=== PATIENT | female | born 1985 | race Caucasian/White ===

== ENCOUNTER 2018-05-12 18:02 | Observation (INO) | payer OTHER ==
[2018-05-12 18:25] LABS: Bilirubin Negative (Negative); Blood, Urine Negative (Negative); Clarity Clear (Clear); Glucose, Urine (Dipstick) Negative (Negative); Leukocyte Trace (Negative); Nitrite Negative (Negative); Protein, Urine (Dipstick) Negative (Neg-Trace); Urobilinogen 0.2 mg/dL (0.2-1.0)
[2018-05-12 18:33] LABS: Bacteria/HPF 2+ HPF (None Seen); RBC/HPF 0-3 HPF (0-3)
[2018-05-12 20:09] LABS: #Basophils 0.1 thou/uL (0.0-0.2); #Eosinphils 0.1 thou/uL (0.0-0.7); #Monocytes 0.6 thou/uL (0.11-0.59); #Neutrophils 4.2 thou/uL (1.40-6.50); %Basophils 1.3 % (0.0-1.0); %Eosinophils 1.2 % (0.0-10.0); %Lymphocytes 37.4 % (21.0-51.0); %Monocytes 7.6 % (0.0-10.0); %Neutrophils 52.6 % (42.0-75.0); Hemoglobin 12.9 g/dL (12.0-16.0); Mean Corpuscular HGB CONC 34.3 g/dL (32.0-36.0); Mean Corpuscular Hemoglobin 28.3 pg (27.0-31.0); Mean Corpuscular Volume 82.7 fL (78.0-98.0); Mean Platelet Volume 9.9 fL (7.4-10.4); Platelet Count 212 thou/uL (130-400); RBC Distribution Width 10.9 % (11.5-14.5); Red Blood Cell (RBC) Count 4.55 mill/uL (4.20-5.40); White Blood Cell (WBC) Count 7.9 thou/uL (4.8-10.8)
[2018-05-12 20:19] LABS: ALT (SGPT) 136 U/L (8-55); AST (SGOT) 105 U/L (5-34); Albumin 4.3 g/dL (3.5-5.0); Alkaline Phosphatase 102 U/L (40-150); Anion Gap 14 mmol/L (10-20); BUN (Urea Nitrogen) 8 mg/dL (7.0-18.7); Bilirubin, Total 0.5 mg/dL (0.2-1.2); Calc. Creatinine Clearance 0 mL/min (70-130); Calcium 10.2 mg/dL (7.8-10.44); Carbon Dioxide 23 mmol/L (22-29); Chloride 104 mmol/L (98-107); Estimated GFR-MDRD Greater than 90; Glucose 139 mg/dL (70-105); Lipase 48 U/L (8-78); Protein, Total 7.3 g/dL (6.0-8.3); Sodium 137 mmol/L (136-145)
[2018-05-12] MEDS ORDERED: cefTRIAXone\\ROCEPHIN 1 GM VIAL ONE (21:05)
[2018-05-12] MEDS ORDERED: Sodium Chloride 0.9% 100 ML ONE (21:05)
[2018-05-13] MEDS ORDERED: Ibuprofen 600 MG TAB PO PRN (00:51)
[2018-05-13] MEDS ORDERED: HumaLOG 300 UNITS/3 ML VIAL SC PRN (00:54)
[2018-05-13] MEDS ORDERED: Dextrose 5% in Water 1,000 ML IV PRN (00:54)
[2018-05-13] MEDS ORDERED: Dextrose 50% Abboject 50 ML SYRINGE SLOW IVP PRN (00:54)
[2018-05-13] MEDS ORDERED: diphenhydrAMINE 50 MG/ML VIAL IVP SCH (01:00)
[2018-05-13] MEDS ORDERED: Sodium Chloride 0.9% 10 ML ONE ×3 (01:30→08:40)
[2018-05-13 03:30] VITALS: BMI 46.9
--- NOTE | 2018-05-13 04:05 | HP ---
DATE OF ENCOUNTER: 05/13/2018 PRIMARY CHIEF ANALYTICS OFFICER: Dr. Natanael Rosales. CHIEF COMPLAINT: Flank pain, fever and ER assessment of pyelonephritis. HISTORY OF PRESENT ILLNESS: Patient is a 32-year-old G4, P2 female with an intrauterine of 9 weeks who is being cared for by Dr. Rosales. She presented to the emergency room today with a thre e-day history of fatigue, headache, fever, and right-sided back pain. She reports that she has had a T-max today of 101. Patient reports nausea. She reports diarrhea, abdominal cramping, which she at tributes to recent starting metformin. Patient denies sore throat, chest pain, shortness of breath, dysuria, hematuria, back pain. Denies neck pain. PAST MEDICAL HISTORY: Hypothyroidism with spontaneous resolution ovarian cyst, type 2 diabetes. PAST SURGICAL HISTORY: She has had a and ovarian cystectomy. SOCIAL HISTORY: Patient denies drug, alcohol, or tobacco use during this . ALLERGIES: PENICILLIN. MEDICATIONS: Lexapro 20 mg a day, metformin 500 mg twice a day. Patient was given 1 gram of Rocephi n in the hospital or in the emergency room prior to transfer. OB LABS: Unavailable. REVIEW OF SYSTEMS: Per HPI. PHYSICAL EXAMINATION: VITAL SIGNS: Blood pressure 119/73, pulse of 85, temperature 98.4, satting 98% on room air. GENERAL: She appears to be in no acute distress. She is alert and oriented, cooperative and pleasan t to interact with. HEENT: Normocephalic, atraumatic. LUNGS: Clear to auscultation bilaterally. HEART: Regular rate and rhythm. ABDOMEN: Soft. She does have right-sided flank pain or CVA tenderness to palpation. GENITOURINARY: Has been deferred. LABORATORY DATA: White count of 7.9, hemoglobin 12.9, hematocrit 37.6, platelets 212,000. Sodium 13 7, potassium 4.0, chloride 104 with a BUN 8, creatinine 0.68, glucose of 139, lactic acid of 1.4, ginny cium of 10.2. AST of 105, ALT of 136. Urine shows negative nitrite, trace leukocyte esterase, 7-10 white blood cells, 4-6 squamous cells and 2+ urine bacteria. ASSESSMENT AND PLAN: Patient is a 32-year-old diabetic with presumptive pyelonephritis. Patient is currently afebrile, though reports a T-max of 101. We will place the patient on Rocephin 1 gram q.12 hours plus her home medications. If she remains afebrile during her stay, patient will be discharge d tomorrow evening with home medication, antibiotics to be continued. Patient does have unexplained elevated LFTs, we will get hepatitis panel and a right upper quadrant ultrasound. For better evaluat ion, patient reports that she does not tolerate metformin well. We will place her on an insulin slid ing scale and we will continue the patient on her Lexapro 20 mg daily.
[2018-05-13 07:05] LABS: ALT (SGPT) 112 U/L (8-55); AST (SGOT) 90 U/L (5-34); Albumin 3.9 g/dL (3.5-5.0); Alkaline Phosphatase 94 U/L (40-150); Bilirubin, Direct 0.2 mg/dL (0.1-0.3); Bilirubin, Total 0.4 mg/dL (0.2-1.2); Protein, Total 6.8 g/dL (6.0-8.3)
[2018-05-13 07:27] LABS: HBCM Index 0.07 S/CO (0-0.79); HBSAg Index 0.17 S/CO (0-0.99); Hep A IgM AB Non-Reactive (NonReactive); Hep A IgM S/CO 0.12 S/CO (0-0.79); Hep B Surf Ag Non-Reactive S/CO (NonReactive); Hep C IgG Ab Non-Reactive (NonReactive); Hep C Index 0.08 S/CO (0-0.79); Hepatitis B Core IGM Abs Non-Reactive (NonReactive)
--- NOTE | 2018-05-13 08:24 | ULT ---
RIGHT UPPER QUADRANT ULTRASOUND: HISTORY: Elevated LFTs, epigastric pain. FINDINGS: Multiple longitudinal and transverse images of the right upper quadrant of the abdomen are obtained u sing a multihertz curvilinear transducer. Real-time, color flow, and spectral waveform Doppler ernesto sis demonstrates some fibrofatty changes and hepatomegaly noted. No definite evidence of hepatic par enchymal mass is seen. The gallbladder is unremarkable with no evidence of gallstones. No evidence of pericholecystic fluid is seen. The common bile duct is of normal size measuring 2.5 mm. Gallbladder wall is of normal thickness. He visualized portion of the pancreas is unremarkable; however, much of the pancreas is not visualize d. The right kidney is unremarkable. No evidence of hydronephrosis seen. IMPRESSION: 1. Hepatomegaly and fibrofatty changes seen in the liver. Otherwise, unremarkable right upper quadr ant ultrasound. 2. Normal hepatopetal flow is seen in the portal system. POS: [facility]
--- NOTE | 2018-05-13 08:27 | PDOC.EVN ---
Event Note - Event Note Event Note: @0830: Assumed OBGYN care: Labs and HX reviewed. I have added HA1c for HX DM. I will order CPK for HX metformin use and mild LFT elevation. RUQ sono results pending Plan on possible PM dsch if afebrile, with po Keflex to follow up UC&S as outpatient
--- NOTE | 2018-05-13 08:40 | PDOC.EVN ---
Event Note - Event Note Event Note: Sono results: No GB stones, normal vascular flow, fatty changes to liver. This can explain mild LFT elevation.
[2018-05-13] MEDS ORDERED: Escitalopram Oxalate 20 mg Tablet PO SCH (09:00)
[2018-05-13] MEDS ORDERED: cefTRIAXone\\ROCEPHIN 1 GM in Sodium Chloride 0.9% 100 ML IVPB SCH (09:00)
[2018-05-13 11:42] VITALS: BP 120/59; TEMP 98.2
[2018-05-13 11:55] LABS: Hemoglobin A1c 7.4 % (4.0-6.0)
--- NOTE | 2018-05-13 14:58 | PDOC.EVN ---
Event Note - Event Note Event Note: DISCHARGE NOTE Admit date05/12/18 Discharge date 05/13/18 ROOM: 303 Admit Diagnosis: 1. Class B DM 2. UTI 3. First trimester 4. Obesity This patient was admitted by Dr Leon from outside facility, at 8 weeks, with suspected UTI vs early pyelo. She was DX with DM 2 weeks ago when her HA1c returned 7.9. Dr Rosales is her physician. She was on metformin 500mg po Q%. HA1c this admit was 7.4; urine culture was mixed daniel. RUQ sono was ordered for mild LFT elevation and DX was fatty liver changes (BMI 24; likely dietary). No evidence fever since admit. She received rocephin IV in house. We decided on discharge to home with keflex 500 TIDx 10 days to cover cystitis ( pyelo not likely); and incresae metformin to 500 BID as medication naive. She will follow up this week with her MD.
--- NOTE | 2018-05-13 21:24 | DIS-2 ---
DATE OF SERVICE: 05/13/2018 DATE OF ADMISSION: 05/12/2018 DATE OF DISCHARGE: 05/13/2018 LOCATION: [place], [place]. RESIDENT PHYSICIAN: Gui Gagnon DO ADMITTING ATTENDING: Keaton Leon MD DISCHARGE ATTENDING: Jackson Jefferson MD CONSULTATIONS: None. PROCEDURES: Abdominal ultrasound done on 05/13/2018 showed hepatomegaly and fibrofatty changes seen in the liver. Otherwise, unremarkable right upper quadrant ultrasound. Normal hepatopetal flow is s een in the portal system. PRIMARY DIAGNOSES: 1. Cystitis with concern for pyelonephritis. 2. Transaminitis. 3. Fatty liver. 4. Type 2 diabetes mellitus. 5. Morbid obesity. 6. , first trimester. DISCHARGE MEDICATIONS: 1. Keflex 500 mg t.i.d. for 10 days. 2. Metformin 500 mg p.o. b.i.d. DISCONTINUED MEDICATIONS: None. HISTORY OF PRESENT ILLNESS AND HOSPITAL COURSE: The patient is a 32-year-old female, G4, P2 with a p regnancy at 9 weeks who was being cared for by Dr. Rosales. She initially presented to an outside ED with mild right-sided flank tenderness and a T-max of 101. She also had associated fatigue and heada suni. Initial lab work done at the outside ED showed a white blood cell count of 7.9, hemoglobin 12.9 , hematocrit of 37.6. Urinalysis showed trace leukocyte esterase with 4-6 squamous epithelial cells and 2+ urine bacteria, which was sent for culture and ultimately grew 10,000 to 25,000 normal skin fl ora. The patient was treated for presumptive pyelonephritis with IV Rocephin 1 gram q.12 hours and w as admitted for observation. The patient did not have any recurrent fevers after the initial elevate d temperature of 101 at the outside ED. On admission, it was noted that the patient had a transamini tis and her LFTs were AST of 105 and ALT of 136, which subsequently downtrended to AST of 90 and ALT of 112. She had a right upper quadrant ultrasound performed, which showed changes consistent with a fatty liver. Additionally, the patient had a hepatitis panel done, which was nonreactive for hepatit is A, hepatitis B, and hepatitis C antibody. Lastly, the patient had a hemoglobin A1c drawn, which w as found to be 7.4. The patient reported that her initial A1c which was drawn approximately 2 weeks ago was 7.6. At that time, she was started on metformin 500 mg p.o. b.i.d. While in the hospital, s he was started on a mild sliding scale insulin and her blood sugar checks were 129 fasting, 116 fasti ng, and premeal 133. Overall, the patient had an uncomplicated hospital course, was treated for presumptive pyelonephritis ; however, the urinalysis and urine culture were both negative. She had resolution of her right-side d flank pain and never re-fevered during her hospital stay. She was sent home with oral antibiotics, Keflex, in addition to oral metformin for control of her type 2 diabetes. The patient was instructe d to follow up with her primary OB provider, Dr. Rosales, within 1 week of discharge. DISPOSITION: The patient left the hospital in stable condition. DISCHARGE INSTRUCTIONS: 1. Location: Home. 2. Diet: Consistent carbohydrates. 3. Activity: Ad sharath. 4. Followup: Follow up with Dr. Rosales within 1 week following discharge.
== END 2018-05-13 16:25 | disposition home or self-care (01) ==
LOC: SCSER 18:02 → 3SE 23:39
PROVIDERS: ADMIT Obstetrics & Gynecology; ATTEND Obstetrics & Gynecology
DX: O23.11 Infections of bladder in pregnancy, first trimester (principal); O26.811 Pregnancy related exhaustion and fatigue, first trimester; O99.281 Endocrine, nutritional and metabolic diseases complicating pregnancy, first trimester; E03.9 Hypothyroidism, unspecified; O24.911 Unspecified diabetes mellitus in pregnancy, first trimester; E11.9 Type 2 diabetes mellitus without complications; O99.211 Obesity complicating pregnancy, first trimester; E66.9 Obesity, unspecified; K76.0 Fatty (change of) liver, not elsewhere classified; O99.611 Diseases of the digestive system complicating pregnancy, first trimester; Z3A.09 9 weeks gestation of pregnancy; Z79.84 Long term (current) use of oral hypoglycemic drugs; Z79.899 Other long term (current) drug therapy; Z88.0 Allergy status to penicillin
CPT/HCPCS: 36415; 36416; 76705; 80053; 80074; 80076; 81003; 81015; 82550; 83036; 83605; 83690; 84702; 85025; 87086; 96361; 96365; 96366; 96375; A4216; G0378; J0696; J1200; J7050

== ENCOUNTER 2018-05-26 15:48 | Emergency (ER) | payer OTHER ==
[2018-05-26 16:50] LABS: #Eosinphils 0.1 thou/uL (0.0-0.7); #Lymphocytes 2.9 thou/uL (1.20-3.40); #Monocytes 0.5 thou/uL (0.11-0.59); #Neutrophils 6.7 thou/uL (1.40-6.50); %Basophils 0.3 % (0.0-1.0); %Eosinophils 1.3 % (0.0-10.0); %Lymphocytes 28.4 % (21.0-51.0); %Monocytes 4.6 % (0.0-10.0); %Neutrophils 65.4 % (42.0-75.0); Hemoglobin 12.8 g/dL (12.0-16.0); Mean Corpuscular HGB CONC 33.3 g/dL (32.0-36.0); Mean Corpuscular Hemoglobin 28.6 pg (27.0-31.0); Mean Platelet Volume 8.7 fL (7.4-10.4); Platelet Count 250 thou/uL (130-400); RBC Distribution Width 12.2 % (11.5-14.5); Red Blood Cell (RBC) Count 4.47 mill/uL (4.20-5.40); White Blood Cell (WBC) Count 10.3 thou/uL (4.8-10.8)
[2018-05-26 19:20] LABS: Bilirubin Negative (Negative); Blood, Urine Small (Negative); Clarity CLEAR (Clear); Glucose, Urine (Dipstick) Negative (Negative); Leukocyte Negative (Negative); Nitrite Negative (Negative); Protein, Urine (Dipstick) 30 mg/dL (Neg-Trace); Specific Gravity, Urine 1.025 (1.002-1.036); Urobilinogen 0.2 mg/dL (0.2-1.0); pH, Urine 5.5 (5.0-9.0)
[2018-05-26 19:21] LABS: Bacteria/HPF Rare-Few HPF (None Seen); Hyaline Casts/LPF 0-3 HYALINE CAST LPF (0-3 Hyaline); Pathc Cast-AUWi Flag 0.29 (0-2.49); Squamous Epithelial 0-3 HPF (0-3); WBC/HPF 0-3 HPF (0-3); Yeast-AUWi Flag 24.1 (0-25.0)
--- NOTE | 2018-05-26 20:02 | ULT ---
TRANSABDOMINAL PELVIC ULTRASOUND WITH PIERRE SCALE, COLOR FLOW AND SPECTRAL DOPPLER IMAGIN05/26/18 HISTORY: Vaginal bleeding. FINDINGS: A single live intrauterine gestation is seen with measurements corresponding to an estimated gestatio nal of 10 weeks, 4 days and PRISCILLA at 12/18/18. [place]-rump length measures 3.79 cm and the gestational sa c diameter 4.66 cm. heart tone measures 169 beats per minute. The left ovary has been surgicall y removed. The right ovary is normal and demonstrates flow. No free fluid is seen. There is no eviden ce of subchorionic hemorrhage. IMPRESSION: Single live IUP of 10 weeks, 4 days estimated gestational age and PRISCILLA at 12/18/18. POS: [facility]
[2018-05-28 01:37] LABS: Chlamydia by PCR Not Detected (NotDetected); GC by PCR Not Detected (NotDetected)
== END 2018-05-26 21:10 | disposition home or self-care (01) ==
LOC: ERS 15:48
DX: O20.0 Threatened abortion (principal); O23.41 Unspecified infection of urinary tract in pregnancy, first trimester; O24.111 Pre-existing type 2 diabetes mellitus, in pregnancy, first trimester; E11.9 Type 2 diabetes mellitus without complications; O99.351 Diseases of the nervous system complicating pregnancy, first trimester; G43.909 Migraine, unspecified, not intractable, without status migrainosus; O99.341 Other mental disorders complicating pregnancy, first trimester; F32.9 Major depressive disorder, single episode, unspecified; Z87.442 Personal history of urinary calculi; Z3A.11 11 weeks gestation of pregnancy
CPT/HCPCS: 36415; 36416; 76856; 81003; 81015; 84702; 85025; 86900; 86901; 87480; 87491; 87510; 87591; 87660; 93976

== ENCOUNTER 2018-06-19 12:18 | Emergency (ER) | payer OTHER ==
[2018-06-19] MEDS ORDERED: Acetaminophen 500 MG TAB ONE (12:47)
[2018-06-19 13:13] LABS: Bilirubin Negative (Negative); Blood, Urine Large (Negative); Clarity TURBID (Clear); Glucose, Urine (Dipstick) Negative (Negative); Leukocyte Small (Negative); Nitrite Negative (Negative); Pregnancy Test - Urine (BHCG) POSITIVE (Negative); Pregu Control Background? CLEAR/WHITE (CLR/WHITE); Pregu Control Bar Appear? YES (CONTROL BAR); Protein, Urine (Dipstick) Trace mg/dL (Neg-Trace); Specific Gravity 1.023 (1.002-1.036); Specific Gravity, Urine 1.023 (1.002-1.036); Urobilinogen 0.2 mg/dL (0.2-1.0)
[2018-06-19 13:17] LABS: Bacteria/HPF None Seen HPF (None Seen)
[2018-06-19 13:19] LABS: Pathc Cast-AUWi Flag 4.16 (0-2.49)
[2018-06-19 13:27] LABS: Hyaline Casts/LPF 0-3 HYALINE CAST LPF (0-3 Hyaline); Other Casts/LPF None Seen LPF (0-3 Hyaline)
[2018-06-19 13:53] LABS: #Basophils 0.1 thou/uL (0.0-0.2); #Eosinphils 0.1 thou/uL (0.0-0.7); #Lymphocytes 2.9 thou/uL (1.20-3.40); #Monocytes 0.5 thou/uL (0.11-0.59); #Neutrophils 7.2 thou/uL (1.40-6.50); %Basophils 0.5 % (0.0-1.0); %Eosinophils 1.3 % (0.0-10.0); %Lymphocytes 27.2 % (21.0-51.0); %Monocytes 4.1 % (0.0-10.0); Hemoglobin 12.2 g/dL (12.0-16.0); Mean Corpuscular HGB CONC 32.5 g/dL (32.0-36.0); Mean Corpuscular Hemoglobin 28.1 pg (27.0-31.0); Mean Corpuscular Volume 86.5 fL (78.0-98.0); Mean Platelet Volume 8.7 fL (7.4-10.4); Platelet Count 252 thou/uL (130-400); RBC Distribution Width 12.3 % (11.5-14.5); Red Blood Cell (RBC) Count 4.32 mill/uL (4.20-5.40); White Blood Cell (WBC) Count 10.8 thou/uL (4.8-10.8)
--- NOTE | 2018-06-19 16:07 | ULT ---
LIMITED OBSTETRICAL ULTRASOUND: 06/19/18 HISTORY: 13 weeks , vaginal bleeding. TECHNIQUE: Multiplanar christina scale sonographic imaging of the gravid uterus obtained with transabdominal imaging. FINDINGS: there is a single intrauterine gestation demonstrating a heart rate of 1 55 beats per minute. T he placenta is located anteriorly. There is a vertex presentation and heart rate of 155 beats p er minute. The side framer measures an angulated hypoechoic area along the posterior margin of the placenta adilson uring approximately 2.5 x 1.4 x 0.8 cm. It appears to indent into the placental parenchyma. Its confi guration is not typical of hematoma. While retroplacental hematoma cannot be fully excluded, this mor e likely represents either a venous garza or a cleft in the placenta. It measures 2.5 x 1.4 x 0.9 cm. BIOMETRY: BPD 2.8 cm 15 weeks, 0 days HC 108 cm 15 weeks, 1 day AC 8.9 cm 15 weeks, 1 day FL 1.7 cm 15 weeks, 1 day Average aged based on ultrasound is 14 weeks, 6 days. Estimated date of delivery is 12/12/18. IMPRESSION: Single intrauterine gestation as detailed above. Angulated hypoechoic area along the posterior aspect of the placenta as above. If symptoms persists, followup focused ultrasound suggested. POS: [facility]
== END 2018-06-19 16:35 | disposition home or self-care (01) ==
LOC: ERS 12:18
DX: O20.0 Threatened abortion (principal); O99.282 Endocrine, nutritional and metabolic diseases complicating pregnancy, second trimester; E11.9 Type 2 diabetes mellitus without complications; O99.352 Diseases of the nervous system complicating pregnancy, second trimester; G43.909 Migraine, unspecified, not intractable, without status migrainosus; O99.342 Other mental disorders complicating pregnancy, second trimester; F41.9 Anxiety disorder, unspecified; Z79.899 Other long term (current) drug therapy; Z79.4 Long term (current) use of insulin; Z3A.14 14 weeks gestation of pregnancy
CPT/HCPCS: 36415; 76815; 81003; 81015; 81025; 84702; 85025; 86900; 86901

== ENCOUNTER 2018-08-13 17:12 | Day surgery (SDC) | payer OTHER ==
[2018-08-13 18:43] VITALS: BMI 43.2
[2018-08-13] MEDS ORDERED: diphenhydrAMINE 50 MG/ML VIAL IVP PRN (18:47)
[2018-08-13] MEDS ORDERED: diphenhydrAMINE 50 MG/ML VIAL ONE (18:50)
[2018-08-13] MEDS ORDERED: Lactated Ringer's 1,000 ML IV SCH (19:00)
[2018-08-13] MEDS: Metoclopramide HCl 10 MG/2 ML VIAL IVP PRN ×4 (19:06→20:57)
--- NOTE | 2018-08-13 20:56 | PRG ---
DATE OF SERVICE: 08/13/2018 OB ER ENCOUNTER PRIMARY OB: Dr. Carlo Cage at an outside facility. CHIEF COMPLAINT: Headache. HISTORY OF PRESENT ILLNESS: The patient is a 33-year-old G4, P3 female with an intrauterine at 22 weeks' gestation complicated by type 2 diabetes. The patient does have a past medical history of migraines, though reports she has not had one in quite a while. She reports 2-day history of headache that she describes on the right side of her head and in the back of her head behind her right eye. She reports sensitivity to light, but not to sound. She reports some nausea, but no vomiting. The patient reports that this headache is not like her previous migraines, but she reports it started as vision loss and proceeded with excessive nausea and vomiting. The patient reports her blood sugar has been under fairly good control with her fasting blood sugars in the 90s and her postprandial blood sugars being about 50% under control, under 140 after 1 hour postprandial and can get to 160s at times. The patient denies any recent fever, headache, chest pain, shortness of breath, diarrhea, or constipation. She denies any new rashes, hip problems or knee problems. She does report also 2-day history of lower back pain in the sacral region. She denies any urinary urgency or frequency, any vaginal bleeding or leakage of fluid. PAST MEDICAL HISTORY: Diabetes. She also reports placenta previa on a 20-week ultrasound with this , history of migraine, and anxiety. PAST SURGICAL HISTORY: She has had 2 prior C-sections. She has had a left oophorectomy and surgery for endometriosis. SOCIAL HISTORY: Denies drug, alcohol, or tobacco use. ALLERGIES: PENICILLIN, REPORTS HIVES A CHILD. MEDICATIONS: 1. She is on Lexapro 20 mg daily. 2. She is on a multivitamin. 3. She is on Humalog with meals and 60 of Lantus at night. OB LABS: Unavailable. PHYSICAL EXAMINATION: VITAL SIGNS: Blood pressure 135/62, heart rate of 90, respiratory rate of 18. GENERAL: She appears to be in no acute distress. She is alert and oriented, cooperative and pleasant to interact with. HEAD: Normocephalic, atraumatic. LUNGS: Clear to auscultation bilaterally. HEART: Regular rate and rhythm. ABDOMEN: Obese, gravid, soft. EXTREMITIES: Nontender, nonedematous. She does have SI joint tenderness to palpation. heart tones at 145. ASSESSMENT AND PLAN: The patient is a 33-year-old female with an intrauterine at 22 weeks' gestation complicated by type 2 diabetes, controlled on Lantus and Humalog, and here for what sounds like a migraine by history. We have placed on IV and are bolusing 1 L of LR. We will also be administering a series of Reglan and Benadryl IV over the next couple hours in an attempt to break her migraine headaches. Another option would be to bolus her with a couple grams of IV magnesium if that do not help. The patient does not appear to be in any excessive pain and hopefully we can get this resolved. The patient is seeing an outside physician regularly in the [place] area, Dr. Carlo Cage. She has an appointment scheduled for August 20 for a echocardiogram. Addendum: Headache resolved with treatment and was discharged to home. Job ID: [id number] MTDD
== END 2018-08-13 22:20 | disposition home health service (06) ==
LOC: ERS 17:12 → EDSTATUS 17:29 → L&D/OP 17:35
PROVIDERS: ATTEND Obstetrics & Gynecology
DX: O99.352 Diseases of the nervous system complicating pregnancy, second trimester (principal); G43.909 Migraine, unspecified, not intractable, without status migrainosus; O24.112 Pre-existing type 2 diabetes mellitus, in pregnancy, second trimester; E11.9 Type 2 diabetes mellitus without complications; Z3A.22 22 weeks gestation of pregnancy; Z88.0 Allergy status to penicillin; Z79.899 Other long term (current) drug therapy; Z79.4 Long term (current) use of insulin
CPT/HCPCS: 96360; 96374; 96375; 99283; J1200; J2765

== ENCOUNTER → 2018-08-21 | Day surgery (SDC) | payer OTHER ==
--- NOTE | 2018-08-21 21:27 | PDOC.LDHP ---
Labor and Delivery H&P Chief complaint: abdominal pain HPI: Patient of an MD in [place] here for C/O RUQ discomfort after dinner Location: L&D HPI: 33 yo SAB1 at 23 weeks 1 day with EDC 12/17/17 with new onset RUQ discomfort after dinner. No VB, no LOF, no CTX. No trauma. HX "previa" and has sono follow up with own MD. No V/V or fever review of Systems: Complete ROS performed and as per HPI Current gestational age (weeks): 23 (1 day) Due date: 12/17/18 Dating criteria: last menstrual period Grav: 4 Para: 2 OB History Details: SAB1; CS X 2 Current complications: pregestational diabetes (On Insulin) Abnormal US findings: No Past Medical History: HX hypothyroid is past but resolved; HX anxiety Current medications: pre- vitamins, other (Insulin) Previous surgical history: other (CS x 2; Left oophorectomy) Allergies/Adverse Reactions: Allergies Allergy/AdvReac Type Severity Reaction Status Date / Time Penicillins Allergy Verified 05/13/18 01:00 Social history: none - Physical Exam Vital signs reviewed and normal: yes (114/54) General: NAD Lungs: CTAB Abdomen: gravid (Obese) [place] contractions every: Doppler FHTs heard, no contractions - Assessment 23 weeks, CS x 2...known "previa" with SHANTEL pain, R/O GB stones. Obesity. - Plan Plan: observation in L&D (I have ordered a CMP and RUQ sono. I have also ordered a cervical length (transperineal) just to be conservative. Obs for now until tests return.)
[2018-08-21 21:41] VITALS: BMI 57.0
[2018-08-21 22:38] LABS: ALT (SGPT) 20 U/L (8-55); AST (SGOT) 18 U/L (5-34); Albumin 3.7 g/dL (3.5-5.0); Alkaline Phosphatase 132 U/L (40-150); Anion Gap 13 mmol/L (10-20); BUN (Urea Nitrogen) 8 mg/dL (7.0-18.7); Bilirubin, Total 0.2 mg/dL (0.2-1.2); Calc. Creatinine Clearance 276 mL/min (70-130); Calcium 9.9 mg/dL (7.8-10.44); Carbon Dioxide 23 mmol/L (22-29); Chloride 105 mmol/L (98-107); Estimated GFR-MDRD Greater than 90; Globulin 3.4 g/dL (2.4-3.5); Glucose 118 mg/dL (70-105); Potassium 3.7 mmol/L (3.5-5.1); Protein, Total 7.1 g/dL (6.0-8.3); Sodium 137 mmol/L (136-145)
--- NOTE | 2018-08-21 22:41 | PDOC.EVN ---
Event Note - Event Note Event Note: CMP ok...awaiting sono
--- NOTE | 2018-08-21 23:35 | PDOC.EVN ---
Event Note - Event Note Event Note: RUQ sono was normal and CX length was 3.2cm OK for outpatient follow up DX: discomforts of preg
--- NOTE | 2018-08-22 07:25 | ULT ---
RIGHT UPPER QUADRANT ULTRASOUND: Date: 08/21/18 INDICATION: Pain. FINDINGS: There is no evidence of focal hepatic lesion. There is no acute gallbladder pathology. Common duct me asures 3.0 mm. No ascites. Beebe's sign reported as negative by hand driller. IMPRESSION: No acute abnormality identified within the right upper quadrant, by sonographic evaluation. POS: [facility]
--- NOTE | 2018-08-22 07:31 | ULT ---
LIMITED OB ULTRASOUND: Date; 08/21/18 INDICATION: Pain. Evaluation of cervical length. History of previa. FINDINGS: There is a live intrauterine gestation with cardiac activity documented at 149 beats/minute. Th e placenta is located anteriorly. There is a focal region of decrease echogenicity with prominent vas cularity approaching this site which favors a venous garza rather than a focus of placental hemorrhage given the degree of vascularity. Finding does not exert significant mass effect. Cervical length is documented at 3.8 cm. Placenta approximates the internal os, but does not clearly traverse this region. Estimated weight is 598 gm. Amniotic fluid volume is subjectively normal. By ultrasound imaging , the fetus corresponds to a 23 weeks/3 days gestation, and stated clinical age is 23 weeks/1 day. IMPRESSION: 1. Redemonstration of a focus of decreased echogenicity without significant interval progression inv olving the placenta, favoring a placental garza. 2. Cervical length of 3.8 cm. There is a low lying placenta which approximates but does not traverse the site of the internal os. Continued imaging follow-up may prove useful to evaluate for expected r etraction. 3. Live intrauterine gestation, which by ultrasound imaging corresponds to a 23 weeks/3 days gestati on, placing estimated date of delivery by ultrasound at 12/15/18. POS: [facility]
== END | disposition home or self-care (01) ==
LOC: L&D/OP 20:33
PROVIDERS: ATTEND Obstetrics & Gynecology
DX: O99.89 Other specified diseases and conditions complicating pregnancy, childbirth and the puerperium (principal); R10.11 Right upper quadrant pain; Z3A.23 23 weeks gestation of pregnancy
CPT/HCPCS: 36415; 76705; 76815; 80053

== ENCOUNTER 2018-12-07 12:33 | Emergency (ER) | payer OTHER ==
[2018-12-07 13:18] LABS: #Eosinphils 0.2 thou/uL (0.0-0.7); #Lymphocytes 1.4 thou/uL (1.20-3.40); #Monocytes 0.5 thou/uL (0.11-0.59); #Neutrophils 7.1 thou/uL (1.40-6.50); %Basophils 0.5 % (0.0-1.0); %Eosinophils 2.1 % (0.0-10.0); %Lymphocytes 15.5 % (21.0-51.0); %Monocytes 5.2 % (0.0-10.0); %Neutrophils 76.7 % (42.0-75.0); Hemoglobin 11.3 g/dL (12.0-16.0); Mean Corpuscular HGB CONC 34.1 g/dL (32.0-36.0); Mean Corpuscular Hemoglobin 28.1 pg (27.0-31.0); Mean Corpuscular Volume 82.3 fL (78.0-98.0); Mean Platelet Volume 8.9 fL (7.4-10.4); Platelet Count 201 thou/uL (130-400); RBC Distribution Width 13.9 % (11.5-14.5); Red Blood Cell (RBC) Count 4.03 mill/uL (4.20-5.40); White Blood Cell (WBC) Count 9.2 thou/uL (4.8-10.8)
--- NOTE | 2018-12-07 13:23 | RAD ---
Exam: Chest one view HISTORY:Sepsis, fever, wound Comparison: 11/26/2017 FINDINGS: Extrinsic artifacts limit visualization. Lungs: Mild interstitial prominence bilaterally with punctate nodularity throughout each lung Cardiac silhouette: Normal size Pulmonary vessels: Normal Pleural Spaces: Clear Pneumothorax: None Osseous abnormalities: None of acuity. IMPRESSION: Diffuse interstitial reticular nodularity of each lung, nonspecific. The possibility of a n atypical infectious/inflammatory, or other miliary process, is not excluded on the basis of this exam. Recommend follow-up with 2 view chest to confirm resolution.
[2018-12-07] MEDS ORDERED: Acetaminophen 500 MG TAB ONE ×2 (13:31→15:11)
[2018-12-07 13:36] LABS: ALT (SGPT) 23 U/L (8-55); AST (SGOT) 16 U/L (5-34); Albumin 4.2 g/dL (3.5-5.0); Alkaline Phosphatase 138 U/L (40-150); Anion Gap 16 mmol/L (10-20); BUN (Urea Nitrogen) 13 mg/dL (7.0-18.7); Bilirubin, Total 0.3 mg/dL (0.2-1.2); Calc. Creatinine Clearance 0 mL/min (70-130); Calcium 9.5 mg/dL (7.8-10.44); Carbon Dioxide 21 mmol/L (22-29); Chloride 104 mmol/L (98-107); Estimated GFR-MDRD 88; Globulin 3.4 g/dL (2.4-3.5); Glucose 111 mg/dL (70-105); Potassium 4.1 mmol/L (3.5-5.1); Protein, Total 7.6 g/dL (6.0-8.3); Sodium 137 mmol/L (136-145)
[2018-12-07] MEDS ORDERED: Ketorolac Tromethamine 30 MG/ML VIAL ONE (13:47)
[2018-12-07] MEDS ORDERED: Metoclopramide HCl 10 MG/2 ML VIAL ONE (14:57)
[2018-12-07] MEDS ORDERED: diphenhydrAMINE 50 MG/ML VIAL ONE (14:57)
[2018-12-07] MEDS ORDERED: ISOVUE-370 76%-LOCM 1 ML ONE (15:03)
--- NOTE | 2018-12-07 15:13 | CT ---
CT ABDOMEN AND PELVIS WITH IV CONTRAST: HISTORY: Fever, abdominal pain, body aches, headache. Recently discharged from [facility] for placenta accreta surgery, postsurgical infection, abscess developed in part of wound vac . The patient was discharged from the hospital last week, 4 days ago. FINDINGS: There are small calcified granulomas in the lung bases. A few tiny noncalcified lung nodules are see n measuring up 4-5 mm. The liver demonstrates decreased attenuation compared to the spleen consistent with fatty liver. No calcified gallstones are seen. The spleen is enlarged measuring 18 cm in AP dimension. The pancreas , adrenal glands, and kidneys are normal. A normal-appearing appendix is present. The patient is po st hysterectomy. Ovaries are present. No free air, free fluid, or lymphadenopathy is seen in the ab domen or pelvis. No abnormally well-loculated fluid collection is noted to suggest abscess formation. There is a 12 mm nonloculated low-density lesion in the region of hysterectomy which may represent a phlegmon or de veloping abscess. Small soft tissue nodular-appearing densities are seen in the supraspinatus fat of the anterior abdominal wall of uncertain etiology, and may be due to subcutaneous injections. IMPRESSION: 1. Fatty liver. 2. Splenomegaly. 3. Small 12 mm ill-defined fluid collection in the pelvis may represent phlegmonous change or develo ping abscess. POS: [facility]
[2018-12-07 15:19] LABS: Bilirubin Negative (Negative); Blood, Urine Negative (Negative); Clarity CLEAR (Clear); Glucose, Urine (Dipstick) Negative (Negative); Leukocyte Negative (Negative); Nitrite Negative (Negative); Protein, Urine (Dipstick) 100 mg/dL (Neg-Trace); Specific Gravity, Urine 1.035 (1.002-1.036); Urobilinogen 0.2 mg/dL (0.2-1.0)
[2018-12-07 15:22] LABS: Bacteria/HPF None Seen HPF (None Seen); Pathc Cast-AUWi Flag 0.54 (0-2.49); RBC/HPF 0-3 HPF (0-3)
[2018-12-07 15:42] LABS: Crystals/HPF 1+ AMORPH URATES HPF (Negative); Hyaline Casts/LPF 0-3 HYALINE CAST LPF (0-3 Hyaline)
[2018-12-07] MEDS ORDERED: Magnesium 2 GM/50 ML BAG (IN WATER) ONE (16:09)
[2018-12-07] MEDS ORDERED: methylPREDNISolone Sod Succ/PF 125 MG/2 ML VIAL ONE (16:09)
[2018-12-07] MEDS ORDERED: cefTRIAXone\\ROCEPHIN 2 GM VIAL ONE (17:24)
== END 2018-12-07 17:57 | disposition home or self-care (01) ==
LOC: ERS 12:33
DX: J02.0 Streptococcal pharyngitis (principal); R51 Headache; E11.9 Type 2 diabetes mellitus without complications; F41.9 Anxiety disorder, unspecified; Z79.4 Long term (current) use of insulin; Z79.899 Other long term (current) drug therapy
CPT/HCPCS: 36415; 71045; 74177; 80053; 81003; 81015; 83605; 85025; 87040; 87430; 93005; 96361; 96365; 96367; 96375; J0696; J1200; J1885; J2765; J2930; J3370; J3475; Q9966

== ENCOUNTER 2021-04-16 15:55 | Outpatient (CLI) | payer BC ==
[2021-04-16 16:48] LABS: BHCG - Serum Negative (NEGATIVE); Pregs Control Background? CLEAR/WHITE (CLR/WHITE); Pregs Control Bar Appear? YES (CONTROL BAR)
[2021-04-17 13:05] LABS: SARS-CoV-2 PCR by NAA Not Detected (NotDetected)
== END 2021-04-16 15:56 | disposition home or self-care (01) ==
LOC: LABBT 15:55
PROVIDERS: ATTEND Specialist
DX: Z01.812 Encounter for preprocedural laboratory examination (principal); Z20.822 Contact with and (suspected) exposure to COVID-19
CPT/HCPCS: 84703; U0003; U0005